=== PATIENT | female | born 1955 | race Caucasian/White ===

== ENCOUNTER 2023-11-27 06:17 | Day surgery (SDC) | payer OTHER, SELFPAY ==
[2023-11-27 08:23] VITALS: BMI 22.9
[2023-11-27 08:27] VITALS: BP 137/72
[2023-11-27 08:43] VITALS: BMI 22.9
[2023-11-27 10:04] VITALS: BP 112/70
[2023-11-27 10:19] VITALS: BP 121/57
== END 2023-11-27 11:00 | disposition home or self-care (01) ==
LOC: GI 06:17
PROVIDERS: ATTENDING PHYSICIAN Internal Medicine Gastroenterology
DX: Z12.11 Encounter for screening for malignant neoplasm of colon (principal); K63.5 Polyp of colon; K64.0 First degree hemorrhoids; K63.89 Other specified diseases of intestine; T18.4XXA Foreign body in colon, initial encounter; Y93.9 Activity, unspecified; Z86.010 Personal history of colon polyps; Z98.890 Other specified postprocedural states
CPT/HCPCS: 45385; 45388; 88305